=== PATIENT | female | born 1970 | race African-American/Black ===

== ENCOUNTER 2024-01-28 21:03 | Emergency (ER) | payer MEDICAID ==
[~2024-01-28] VITALS: Ht 167.6 cm; Wt 70.5 kg
[2024-01-28 21:11] VITALS: BP 187/117; PULSE 110; RESP 18; TEMP 99.5; O2SAT 98
== END 2024-01-29 00:48 | disposition left against medical advice (07) ==
LOC: EMS 21:03
DX: M25.511 Pain in right shoulder (principal); Z53.21 Procedure and treatment not carried out due to patient leaving prior to being seen by health care provider
CPT/HCPCS: 73030-TC

== ENCOUNTER 2024-01-31 08:12 | Emergency (ER) | payer MEDICAID ==
[~2024-01-31] VITALS: Ht 167.6 cm; Wt 65.9 kg
[2024-01-31] MEDS ORDERED: ACET-2247 PO (08:19)
[2024-01-31] MEDS ORDERED: IBUP-45 PO (08:19)
[2024-01-31 08:20] VITALS: TEMP 98.4
[2024-01-31 08:40] VITALS: BP 143/89; PULSE 96; RESP 20; O2SAT 99
[2024-01-31] MEDS ORDERED: ACET-3385 PO (08:48)
[2024-01-31] MEDS ORDERED: IBUP-1492 PO (08:48)
[2024-01-31] MEDS: KETOROLAC TROMETHAMINE 30 MG/ML VIAL IM ONE (08:54)
== END 2024-01-31 09:10 | disposition home or self-care (01) ==
LOC: EMS 08:12
DX: M75.31 Calcific tendinitis of right shoulder (principal); F17.210 Nicotine dependence, cigarettes, uncomplicated; F12.90 Cannabis use, unspecified, uncomplicated
CPT/HCPCS: 99283; 96372; J1885